=== PATIENT | male | born 1990 | race Caucasian/White ===

== ENCOUNTER 2017-06-04 18:37 | Emergency (ER) | payer OTHER ==
[~2017-06-04] VITALS: Ht 170.2 cm; Wt 75.2 kg
[~2017-06-04 18:37] MED LIST: ADVA250A INH; MEDR4PAK3 PO; RANI150 PO
[2017-06-04 18:40] VITALS: BP 141/76; PULSE 67; RESP 16; TEMP 99; O2SAT 100
--- NOTE | 2017-06-04 19:31 | PD ---
HPI Chief Complaint: Musculoskeletal Complaint Time Seen by Provider: 19:11 Travel History International Travel<30 days: No Contact w/Intl Traveler<30days: No Traveled to known affect area: No History of Present Illness HPI 27-year-old male presents to the emergency room for evaluation of left elbow pain and swelling after falling prior to arrival. Patient states his feet slipped out from under him and he fell to the left landing with his left, medial arm flat on the concrete. He developed immediate pain but pain is not significant. Pain worsens with range of motion. States over the past hour or so, the swelling has increased and made it more difficult for him to straighten or bend his elbow. He has not taken anything for symptoms. Reports paresthesias in the left fourth and fifth fingers. Denies any chronic medical conditions or daily medications. PFSH Past Medical History Asthma: Yes Social History Alcohol Use: Yes ("OCCASIONALLY") Tobacco Use: No Substance Use: No Allergies-Medications (Allergen,Severity, Reaction): Coded Allergies: cat dander (Unverified Allergy, Severe, SOB, 06/04/17) milk (Unverified Allergy, Severe, Anaphylaxis, 06/04/17) dog dander (Unverified Allergy, Intermediate, Shortness of Breath, 06/04/17 ) tree nut (Unverified Allergy, Unknown, 06/04/17) PT REPORTS BEING ALLERGIC TO A NUT BUT CAN'T REMEMBER WHICH NUT IT IS Reported Meds & Prescriptions Reported Meds & Active Scripts Active No Active Prescriptions or Reported Medications Review of Systems Except as stated in HPI: all other systems reviewed are Neg Physical Exam Narrative GENERAL: Well-nourished, well-developed male in no acute distress. Afebrile. Ambulatory. SKIN: Focused skin assessment warm/dry. Moderate ecchymosis of the left elbow. HEAD: Normocephalic. EYES: No scleral icterus. No injection or drainage. NECK: Supple, trachea midline. No JVD or lymphadenopathy. CARDIOVASCULAR: Regular rate and rhythm without murmurs, gallops, or rubs. RESPIRATORY: Breath sounds equal bilaterally. No accessory muscle use. MUSCULOSKELETAL: No cyanosis. Moderate edema of the left elbow. 2+ radial pulse. Radial, ulnar, median nerves intact. Limited range of motion of the elbow secondary to pain. Data Data Last Documented VS Vital Signs Date Time Temp Pulse Resp B/P (MAP) Pulse Ox O2 Delivery O2 Flow Rate FiO2 06/04/17 18:40 99.0 67 16 141/76 (97) 100 Orders Orders Elbow, Complete (4 Vws) (06/04/17 ) Humerus (Min 2vws) (06/04/17 ) MDM Medical Decision Making Medical Screen Exam Complete: Yes Emergency Medical Condition: Yes Medical Record Reviewed: Yes Differential Diagnosis Contusion, fracture, effusion, strain, sprain Narrative Course 27-year-old male presents to the emergency room for evaluation of left elbow pain and swelling that occurred just prior to arrival after mechanical fall. Left upper extremity is neurovascularly intact with 2+ radial pulse. Radial, ulnar, and median nerves intact. Limited range of motion secondary to pain and swelling. Pain is worsened with supination and extension. X-rays of the left elbow shows mildly displaced radial head fracture with joint effusion. Humerus x-ray is negative. Patient placed in sugar tong splint and sling. Declined pain meds in ED. Discharged with prescription for ibuprofen and told to follow- up with an orthopedic surgeon within 1 week or return for worsening symptoms. He understands and agrees to plan. Diagnosis Primary Impression: Fracture of radial head, left, closed Qualified Codes: S52.122A - Displaced fracture of head of left radius, initial encounter for closed fracture Referrals: Yunier Doyle MD Primary Care Physician Additional Instructions: Keep splint on until follow-up. Take ibuprofen with food as directed, as needed for pain. Apply ice to the affected area for 20 minutes at a time, as needed for pain and swelling. Follow-up with an orthopedic surgeon within 1 week. Return to the emergency room for worsening symptoms. Scripts No Active Prescriptions or Reported Meds Disposition: 01 DISCHARGE HOME Condition: Stable Shelli Mendoza Jun 04, 2017 19:31
--- NOTE | 2017-06-04 20:02 | RADRPT ---
EXAM DATE/TIME: 06/04/2017 19:43 [facility] COMPARISON: No previous studies available for comparison. INDICATIONS : Left elbow pain after falling today. MEDICAL HISTORY : None. SURGICAL HISTORY : None. ENCOUNTER: Initial ACUITY: 1 day PAIN SCORE: 6/10 LOCATION: Left posterior elbow. FINDINGS: Multiple view examination of the left elbow demonstrates a minimally displaced radial head fracture. Positive joint effusion. No dislocation. CONCLUSION: 1. Mildly displaced radial head fracture with elbow joint effusion. Alpesh Harrison MD on June 04, 2017 at 19:58 Board Certified Radiologist. This report was verified electronically.
--- NOTE | 2017-06-04 20:04 | RADRPT ---
EXAM DATE/TIME: 06/04/2017 19:43 [facility] COMPARISON: No previous studies available for comparison. INDICATIONS : Left elbow pain since falling today. MEDICAL HISTORY : None. SURGICAL HISTORY : None. ENCOUNTER: Initial ACUITY: 1 day PAIN SCORE: 6/10 LOCATION: Left posterior elbow. FINDINGS: Two view examination of the left humerus demonstrates no evidence of fracture or dislocation. Bony m ineralization is normal. The soft tissue structures are intact. CONCLUSION: Unremarkable examination of the left humerus. Alpesh Harrison MD on June 04, 2017 at 19:59 Board Certified Radiologist. This report was verified electronically.
[2017-06-04] MEDS ORDERED: IBUP1TAB7 PO (20:26)
== END 2017-06-04 20:58 | disposition home or self-care (01) ==
LOC: PHEFT 18:37
DX: S52.122A Displaced fracture of head of left radius, initial encounter for closed fracture (principal); W01.0XXA Fall on same level from slipping, tripping and stumbling without subsequent striking against object, initial encounter; J45.909 Unspecified asthma, uncomplicated
CPT/HCPCS: 29125; 73060; 73080